=== PATIENT | male | born 1955 | race Caucasian/White ===

== ENCOUNTER → 2021-10-18 00:47 | Outpatient (CLI) | payer MEDICARE, SELFPAY ==
[2021-10-18 12:45] LABS: SARS-CoV-2 RNA PCR Negative
== END ==
PROVIDERS: PCP Internal Medicine; Visit Provider Internal Medicine Gastroenterology
DX: Z01.812 Encounter for preprocedural laboratory examination (principal); Z20.822 Contact with and (suspected) exposure to COVID-19
CPT/HCPCS: C9803; U0003; U0005

== ENCOUNTER 2021-10-21 00:38 | Day surgery (SDC) | payer MEDICARE, SELFPAY ==
[2021-10-16 15:22] VITALS: BMI 38.9
[2021-10-21 08:00] VITALS: BP 152/92; PULSE 92; RESP 18; TEMP 36.2; O2SAT 95
[2021-10-21] MEDS: LACTATED RINGERS 1,000 ML 150 ML IV CONT (08:15)
--- NOTE | 2021-10-21 08:15 | WPDGICN ---
Assessment and Plan Assessment and plan (1) Ulcerative colitis: Code(s): K51.90 - Ulcerative colitis, unspecified, without complications Status: Acute Assessment and Plan: Patient with ulcerative colitis initially diagnosed in 2005. Appears to be in remission most recently. Plan is for surveillance colonoscopy now and at intervals in the future. Currently every 5 years (2) Obesity: Code(s): E66.9 - Obesity, unspecified Status: Acute GI Consult Note Consult date/time: 10/21/21 08:15 HPI: Miguel López is a 66 year old male With a history of ulcerative colitis presents for screening colonoscopy. Patient initially found to have ulcerative colitis in 2005. Initially placed on Colazal he has done well subsequently. Follow-up colonoscopy 2010 confirmed ulcerative colitis but in remission and most recent colonoscopy 2017 biopsies failed to find any evidence of colitis suggesting remission. Patient states his current weight appetite bowel movements are normal. He denies abdominal pain. He has had no bleeding. He no longer takes medications for his colitis. He has gained some weight recently. Review of Systems Review of Systems: All systems reviewed & are unremarkable except as noted in HPI and below PMFSH Family History Family History Sibling Patient's sister is in good health Patient's brother is in good health Mother Patient's mother is Father Patient's father is Social History Social History Smoking status: Never smoker Second hand tobacco smoke exposure: No Alcohol intake: current Drinks per week: 5 Living arrangements: with family Spiritual care concerns: No Meds Home Medications and Allergies Home Medications Medication Instructions Recorded Confirmed Type azelastine 137 mcg (0.1 %) nasal 2 spray NASAL Q12H PRN ml 08/31/19 10/16/21 History spray aerosol levothyroxine 200 mcg tablet 200 mcg PO DAILY #90 tablet 08/18/21 10/16/21 Rx losartan 50 mg-hydrochlorothiazide 1 tablet PO DAILY #90 tablet 10/08/21 10/16/21 Rx 12.5 mg tablet Allergies Allergy/AdvReac Type Severity Reaction Status Date / Time Penicillins Allergy Mild Unknown Verified 10/21/21 07:58 Vital Signs Vital Signs - 24 hr 10/21/21 08:00 Temperature 97.2 F L Pulse Rate 92 Respiratory Rate 18 Blood Pressure 152/92 H Pulse Oximetry 95 Exam Narrative: Physical exam reveals patient be alert. Vital signs stable. HEENT exam is unremarkable. Patient is anicteric. Lungs are clear to auscultation and percussion. Heart is without murmur or extra sounds. Abdomen Is obese. bowel sounds are present soft nontender with no hepatosplenomegaly. digital external rectal exam is normal.
--- NOTE | 2021-10-21 08:18 | P.PNAN_ITS ---
Anes - Initial Pre Proc Eval Procedure: Operation Date: 10/21/21 09:00 Proposed Procedures p Colonoscopy - Deandre Zamudio MD Date/Time: 10/21/21 08:18 Surgeon: Deandre Zamudio MD Pre Op Diagnosis: ulcerative colitis Patient Data Age: 66 Gender: M Height: 1.78 m Weight: 125.1 kg Last Vital Signs Temp 36.2 C L 10/21/21 08:00 Pulse 92 10/21/21 08:00 Resp 18 10/21/21 08:00 BP 152/92 H 10/21/21 08:00 Pulse Ox 95 10/21/21 08:00 Allergies Allergy/AdvReac Type Severity Reaction Status Date / Time Penicillins Allergy Mild Unknown Verified 10/21/21 07:58 Home Medications Medication Instructions Recorded Confirmed Type azelastine 137 mcg (0.1 %) nasal 2 spray NASAL Q12H PRN ml 08/31/19 10/16/21 History spray aerosol levothyroxine 200 mcg tablet 200 mcg PO DAILY #90 tablet 08/18/21 10/16/21 Rx losartan 50 mg-hydrochlorothiazide 1 tablet PO DAILY #90 tablet 10/08/21 10/16/21 Rx 12.5 mg tablet Patient hx anesthesia problems: none Family hx anesthesia problems: none Results Review: All pre-operative results and documents have been reviewed as part of the pre-operative evaluation. [facility] Past Medical History Medical History Hypothyroidism ROLANDA (obstructive sleep apnea) Pure hypercholesterolemia Ulcerative colitis Family History Family History Sibling Patient's sister is in good health Patient's brother is in good health Mother Patient's mother is Father Patient's father is Social History Social History Smoking status: Never smoker Second hand tobacco smoke exposure: No Alcohol intake: current Drinks per week: 5 Living arrangements: with family Spiritual care concerns: No Anes - Eval Final PreProcedure Day of Procedure 10/21/21 08:18 Patient weight: morbidly obese Heart: regular rate and rhythm Lungs: clear to auscultation Airway: Mallampati scale class II Neurological: alert and oriented Last oral intake: >/= 8 hours ASA classification: III Emergent: no Anesthetic plan: proceed Anesthesia type and monitoring: general GIVS and standard monitoring Results Review: All pre-operative results and documents have been reviewed as part of the pre-operative evaluation. Informed Consent: The patient's anesthetic plan and its attendant risks and benefits were discussed with the patient/family/POA. Questions were solicited and answers provided to the satisfaction of the patient/family/POA.
[2021-10-21 09:05] VITALS: BP 93/60; PULSE 84; RESP 22; O2SAT 95
[2021-10-21 09:15] VITALS: BP 115/64; PULSE 85; RESP 16; O2SAT 95
[2021-10-21 09:25] VITALS: BP 119/72; PULSE 79; RESP 16; O2SAT 97
--- NOTE | 2021-10-21 09:52 | SUR.PHASEII ---
Pt waiting on jitney driver to arrive, causing the delay in discharge.
== END 2021-10-21 09:55 | disposition home or self-care (01) ==
PROVIDERS: PCP Internal Medicine; Visit Provider Internal Medicine Gastroenterology
PROC: 0DJD8ZZ Inspection of Lower Intestinal Tract, Via Natural or Artificial Opening Endoscopic (ICD-10-PCS; CPT 45378; principal; 2021-10-21 09:00)
DX: K51.90 Ulcerative colitis, unspecified, without complications (principal); D12.0 Benign neoplasm of cecum; K64.8 Other hemorrhoids; E03.9 Hypothyroidism, unspecified; G47.33 Obstructive sleep apnea (adult) (pediatric); E78.00 Pure hypercholesterolemia, unspecified; E66.01 Morbid (severe) obesity due to excess calories; Z68.39 Body mass index [BMI] 39.0-39.9, adult
CPT/HCPCS: 45385; 45380; 88305; C9803; J2704; J7120; U0003; U0005

== ENCOUNTER 2022-04-19 09:10 | Outpatient (CLI) | payer MEDICARE, SELFPAY ==
--- NOTE | ~2022-04-19 | CT_ITS ---
EXAMINATION: CT sinus wo con DATE: 04/19/2022 09:55 INDICATION: Chronic sinusitis TECHNIQUE: Computed tomography (CT) of the paranasal sinuses was performed without intravenous contra st. The dose-length product was 261.91 mGy-cm. Automated exposure control and iterative reconstructio n technique were employed. COMPARISON: CT dated 04/19/2022 FINDINGS: There is mucosal thickening of the right sphenoid and to a lesser degree ethmoid sinuses.. Ostiomeatal units are patent. No significant nasal septal deviation. No air-fluid levels or mucoperio steal reaction. Mastoids are pneumatized. No depressed skull fractures. IMPRESSION: 1. Mild sinus disease primarily involving the right sphenoid sinus. Reviewed, dictated and finalized at location A.
== END 2022-04-19 09:11 | disposition home or self-care (01) ==
PROVIDERS: PCP Internal Medicine; Visit Provider Internal Medicine
DX: J32.9 Chronic sinusitis, unspecified (principal)
CPT/HCPCS: 70486

== ENCOUNTER 2024-01-14 12:34 | Emergency (ER) | payer MEDICARE, SELFPAY ==
[2024-01-14 12:44] VITALS: BP 146/87; PULSE 77; RESP 15; TEMP 36.2; O2SAT 98
[2024-01-14 12:46] VITALS: BP 146/87; PULSE 77; RESP 15; TEMP 36.2; O2SAT 98
--- NOTE | 2024-01-14 12:51 | ED.DENTAL ---
HPI - Dental/Oral General Chief complaint: Dental/Oral Stated complaint: Tooth Infection and Dizziness Time Seen by Provider: 01/14/24 12:51 Source: patient Mode of arrival: ambulatory History of Present Illness HPI Narrative: 68-year-old male with hx prostate cancer presented for complaint of right lower dental pain intermittently over the past few months. On 12/01/23 he was treated with an antibiotic for the same tooth concerns. Reports pain when chewing. States last night the gum had a large white bubble. This morning the bubble was gone and is now a 'red crater.' Using oregano oil, coconut oil, and salt water rinses. Rates pain 2/10 at this time. Denies facial swelling, neck pain/swelling/redness, n/v/d/f/c. Additionally pt reports concern about brief episodes of forgetfulness. States over the past few weeks he has forgotten what he was going to say at times. States this has not been an issue for him and he is concerned. Denies wandering at night, confusion, headaches, vision changes. States he is able to recall what was forgotten. MD Complaint: tooth pain Related Data Home Medications Medication Instructions Recorded Confirmed azelastine 137 mcg (0.1 %) nasal 1 spray intranasal Q12H Congestion 05/12/22 12/01/23 spray aerosol zolpidem 5 mg tablet 5 mg PO QHS 04/28/23 12/01/23 Allergies Allergy/AdvReac Type Severity Reaction Status Date / Time Penicillins Allergy Mild Unknown Verified 01/14/24 12:46 Review of Systems Review of Systems: CONSTITUTIONAL: Denies body aches, fever, chills ENT: Denies rhinorrhea, congestion, sore throat, or otalgia. Reports dental pain CARDIOVASCULAR: Denies chest pain, palpitations RESPIRATORY: Denies cough or dyspnea. SKIN: Denies rash, itching, or wounds. MUSCULOSKELETAL: Denies myalgia. NEUROLOGIC: Denies headache, numbness, tingling, or weakness. [facility] Past Medical History Medical History Hypothyroidism ROLANDA (obstructive sleep apnea) Pure hypercholesterolemia Ulcerative colitis Family History Family History Sibling Patient's sister is in good health Patient's brother is in good health Mother Patient's mother is Father Patient's father is Social History Social History Smoking status: Never smoker Second hand tobacco smoke exposure: No Alcohol intake: current Drinks per week: 5 Lack of Transportation: No Lack of Food: Never True Current Housing: I Have Housing Concerned About Future Housing: No Difficulty Paying Gas/Electric Bills: No Difficulty Paying for Meds: No Currently Unemployed: No Education: High School Diploma/GED Difficulty w/ Childcare or Family Care: No Living arrangements: with family Spiritual care concerns: No Comments At time of signature, I have reviewed and agree with nursing past medical, surgical, social and family history unless otherwise noted. Please see nursing chart for further information. There is no relevant family history pertinent to the presenting complaint Exam Narrative: GENERAL: Well-appearing HEAD: Normocephalic, atraumatic. EYES: EOMI. No redness or drainage. Conjunctivae normal. ENT: Dental pain location of #30, crown intact, medial aspect of gum with mild swelling and pinpoint open area c/w ruptured abscess; tender with palpation, no active drainage. Mucous membranes pink and moist. TMs normal bilaterally. Throat normal. Uvula midline. no dysphagia, odynophagia, dysphonia, or dyspnea NECK: Normal AROM. No lymphadenopathy. no induration below mandible, no neck pain. CHEST: No respiratory distress. Clear to auscultation. HEART: Regular rate and rhythm. No murmur appreciated. SKIN: Warm, dry, no rash. Normal skin turgor. NEURO: No focal deficits. Alert and oriented x3. Gait steady.
== END 2024-01-14 13:09 | disposition home or self-care (01) ==
PROVIDERS: Emergency Provider Nurse Practitioner Family; PCP Internal Medicine
DX: K04.7 Periapical abscess without sinus (principal); E03.9 Hypothyroidism, unspecified; E78.00 Pure hypercholesterolemia, unspecified
CPT/HCPCS: 99213; G0463

== ENCOUNTER 2025-06-20 07:45 | Outpatient (CLI) | payer MEDICARE, SELFPAY ==
--- NOTE | ~2025-06-20 | US_ITS ---
EXAMINATION: US aorta [facility] DATE: 06/20/2025 08:23 INDICATION: Abdominal aortic aneurysm screening. TECHNIQUE: Grayscale, color Doppler, and pulsed Doppler images of the aorta and common iliac arteries were obtained. COMPARISON: None. FINDINGS: The aorta is normal in caliber and demonstrates atherosclerosis. The right common iliac artery is normal in caliber. The left common iliac artery is normal in caliber. IMPRESSION: 1. No abdominal aortic aneurysm. Reviewed, dictated and finalized at location E.
== END 2025-06-20 07:46 | disposition home or self-care (01) ==
LOC: MICIMG 07:46
PROVIDERS: PCP Internal Medicine; Visit Provider Internal Medicine
DX: Z82.49 Family history of ischemic heart disease and other diseases of the circulatory system (principal)
CPT/HCPCS: 76706

== ENCOUNTER 2025-07-25 08:36 | Outpatient (CLI) | payer MEDICARE, SELFPAY ==
--- NOTE | 2025-07-25 09:01 | ECHO_ITS ---
Patient Info Name: Miguel López Age: 70 years : 1955 Gender: Male Ht: 70 in Wt: 230 lbs BSA: 2.30 m2 HR: 71 bpm BP: 136 / 94 mmHg Heart Rhythm: Sinus Rhythm Technical Quality: Fair Exam Date: 07/25/2025 9:06 AM Patient Status: O Admit Date: 07/25/2025 Exam Type: CA echo doppler color flow Complete two-dimensional, color flow and Doppler transthoracic echocardiogram is performed. Clip Loading Machine Feeder: Lolita Hdz Attending Provider: Reza Sethi Summary 1. Complete two-dimensional, color flow and Doppler transthoracic echocardiogram is performed. 2. Left ventricular chamber dimension is normal. 3. Left ventricular systolic function is normal, estimated at 65-70. 4. There is mild concentric increased left ventricular wall thickness. 5. The left ventricular diastolic function is grade I diastolic dysfunction. 6. E/e' 13 is mildly elevated. 7. Left atrial chamber dimension is mildly enlarged. 8. There is mild aortic valve sclerosis. 9. No pulmonary hypertension, estimated pulmonary arterial systolic pressure is 27 mmHg. Left Ventricle E/e' 13 is mildly elevated. Left ventricular chamber dimension is normal. Left ventricular systolic function is normal, estimated at 65-70. There is mild concentric increased left ventricular wall thickness. The left ventricular diastolic function is grade I diastolic dysfunction. Right Ventricle Right ventricular chamber dimension is normal. Right ventricular systolic function is normal and with normal TAPSE 2.6 cm. Left Atria Left atrial chamber dimension is mildly enlarged. Right Atria Right atrial chamber dimension is normal. Aortic Valve The aortic valve is trileaflet. There is mild aortic valve sclerosis. There is no aortic valve stenosis. There is no aortic valve regurgitation. Pulmonic Valve There is no pulmonic regurgitation. Mitral Valve There is no mitral valve stenosis. There is no mitral valve regurgitation. Tricuspid Valve There is no tricuspid valve regurgitation. No pulmonary hypertension, estimated pulmonary arterial systolic pressure is 27 mmHg. Pericardium/Pleural There is no pericardial effusion. Inferior Vena Cava Normal inferior vena cava with >50% collapse upon inspiration consistent with normal right atrial pressure, 5 mmHg. Aorta The aortic root size at the sinus of Valsalva is normal. Left Ventricular Outflow Tract Name Value Normal LVOT 2D LVOT Diameter 2.1 cm LVOT Doppler LVOT Peak Velocity 82 cm/s LVOT Peak Gradient 3 mmHg LVOT Mean Gradient 1 mmHg LVOT VTI 16 cm LVOT VTI/AV VTI Ratio 0.6 LVOT Stroke Volume 54 ml LVOT CO 3.4 l/min LVOT CI 1.5 l/min/m2 Pulmonic Valve Name Value Normal RVOT Doppler RVOT Peak Velocity 66 cm/s RVOT Peak Gradient 2 mmHg PV Doppler PV Peak Velocity 99 cm/s PV Peak Gradient 4 mmHg Mitral Valve Name Value Normal MV Diastolic Function MV E Peak Velocity 83 cm/s MV A Peak Velocity 106 cm/s MV E/A 0.8 MV Decel Time (PW) 303 ms MV Annular TDI MV E/e' (Septal) 13.6 MV E/e' (Lateral) 13.8 MV E/e' (Average) 13.7 Tricuspid Valve Name Value Normal TV Regurgitation Doppler TR Peak Velocity 236 cm/s TR Peak Gradient 15 mmHg Estimated PAP/RSVP RA Pressure 5 mmHg <=5 PA Systolic Pressure 27 mmHg <36 RV Systolic Pressure 27 mmHg <36 TV Annular TDI TV Lateral Jenifer s' Velocity 13.3 cm/s >=9.5 Aorta Name Value Normal Ascending Aorta Ao Root Diameter (MM) 3.7 cm Ao Root Diam Index (MM) 1.6 cm/m2 Aortic Valve Name Value Normal AV Doppler AV Peak Velocity 132 cm/s AV Peak Gradient 7 mmHg AV Mean Gradient 3 mmHg AV VTI 26 cm AV Area (Cont Eq VTI) 2.1 cm2 >=3.0 AV Area (Cont Eq Thomas) 2.1 cm2 AV DI (Thomas) 0.62 AV Regurgitation 2D LVOT Area 3.3 cm2 Ventricles Name Value Normal LV Dimensions 2D/MM IVS Diastolic Thickness (2D) 1.2 cm 0.6-1.0 LVID Diastole (2D) 6.0 cm 4.2-5.8 LVIW Diastolic Thickness (2D) 1.1 cm 0.6-1.0 LVID Systole (2D) 3.7 cm 2.5-4.0 LVOT Diameter 2.1 cm LV Mass (2D Cubed) 293.37 g 88.00-224.00 LV Mass Index (2D Cubed) 127 g/m2 49-115 Relative Wall Thickness (2D) 0.37 <=0.42 LV Fractional Shortening/Ejection Fraction 2D/MM LV Fractional Shortening (2D) 38 % 25-43 LV EF (2D Teichholz) 67 % LV Diastolic Volume (4C MOD) 106 ml LV EF (4C MOD) 63 % LV Diastolic Volume (2C MOD) 88 ml LV EF (2C MOD) 67 % LV Diastolic Volume (BP MOD) 100 ml 62-150 LV Diastolic Volume Index (BP MOD) 43 ml/m2 34-74 LV Systolic Volume (BP MOD) 34 ml 21-61 LV Systolic Volume Index (BP MOD) 15 ml/m2 11-31 LV EF (BP MOD) 66 % 52-72 LV Diastolic Length (4C) 7.7 cm LV Systolic Length (4C) 6.4 cm LV Stroke Volume (4C MOD) 66 ml Atria Name Value Normal LA Dimensions LA Dimension (MM) 5.0 cm 3.0-4.0 LA Volume (4C A-L) 64 ml LA Volume (BP A-L) 69 ml RA Dimensions RA Area (4C) 18.2 cm2 <=18.0 Report Signatures
== END 2025-07-25 08:37 | disposition home or self-care (01) ==
PROVIDERS: PCP Internal Medicine; Visit Provider Nurse Practitioner
DX: R55 Syncope and collapse (principal); I10 Essential (primary) hypertension
CPT/HCPCS: 93306